=== PATIENT | female | born 1955 | race Caucasian/White ===

== ENCOUNTER → 2020-12-28 11:13 | Outpatient (CLI) | payer MEDICARE, MEDICAID, SELFPAY ==
[2020-12-28 13:08] LABS: COVID19 -Nasal RAPID Negative (Negative)
== END ==
PROVIDERS: Visit Provider Physician Assistant
DX: Z01.812 Encounter for preprocedural laboratory examination (principal); Z20.822 Contact with and (suspected) exposure to COVID-19
CPT/HCPCS: 87635; C9803

== ENCOUNTER 2020-12-29 08:10 | Day surgery (SDC) | payer MEDICARE, MEDICAID, SELFPAY ==
[2020-12-29 08:37] VITALS: BP 125/79; PULSE 96; RESP 18; TEMP 36.5; O2SAT 99; BMI 23.8
--- NOTE | 2020-12-29 08:42 | PM.HP.1 ---
History of Present Illness History of Present Illness Date Patient Seen: 12/29/20 Time Patient Seen: 08:43 Chief complaint: SDC Narrative: Personal history of colon polyps Meds Home Medications and Allergies Home Medications Medication Instructions Recorded Confirmed Type aspirin 81 mg tablet,delayed 81 mg PO DAILY 12/29/20 12/29/20 History release carvedilol 12.5 mg tablet 12.5 mg PO BID 12/29/20 12/29/20 History evolocumab 140 mg/mL subcutaneous 140 mg SUBCUT USEASDIRECTD 12/29/20 12/29/20 History pen injector (Corey Lovell) ezetimibe 10 mg tablet 10 mg PO DAILY 12/29/20 12/29/20 History losartan 50 mg tablet 50 mg PO BID 12/29/20 12/29/20 History spironolactone 25 mg tablet 12.5 mg PO DAILY 12/29/20 12/29/20 History valacyclovir 500 mg tablet 500 mg PO DAILY 12/29/20 12/29/20 History Allergies Allergy/AdvReac Type Severity Reaction Status Date / Time lisinopril Allergy Intermediate Hives Verified 12/29/20 08:55 bacitracin AdvReac Intermediate Rash Verified 12/29/20 08:55 [From Neosporin ([id number])] neomycin AdvReac Intermediate Rash Verified 12/29/20 08:55 [From Neosporin ([id number])] polymyxin B AdvReac Intermediate Rash Verified 12/29/20 08:55 [From Neosporin ([id number])] Sulfa (Sulfonamide AdvReac Intermediate Diarrhea Verified 12/29/20 08:55 Antibiotics) Review of Systems Review of Systems ROS: Yes All systems reviewed with the patient and are negative except as otherwise documented Exam Const General: cooperative and comfortable Orientation: alert HENMS Head: normocephalic Ears: external ears normal Nose: external nose normal Face and sinus: normal facial exam Mouth: oral mucosae normal Eyes General: appearance normal, both eyes and all related structures Neck Neck: normal visual inspection Chest Chest: normal inspection of the chest Resp Effort & Inspection: normal respiratory effort Cardio Rate: regular rate GI Inspection: normal to inspection Palpation: soft and No tender Skin General: no rashes or lesions noted and No jaundice Neuro General: patient alert and moves all extremities Cognition: normal cognition Speech: speech normal Extrem General: no pedal edema Psych Appearance: grossly normal Assessment & Plan Assessment & Plan narrative: Personal history of colon polyps. Colonoscopy is planned for today.
[2020-12-29] MEDS: SODIUM CHLORIDE 0.9% 1,000 ML 84 ML IV (08:56)
--- NOTE | 2020-12-29 09:26 | PM.PREOP ---
Pre-operative Note COVID-19 COVID-19 status: Negative Result date/Date tested (Pos, Neg/Pending): 12/28/20 Interval Note History & Physical reviewed/Exam performed by Physician: Yes Changes to H&P: No ASA Class (for procedural sedation): II
[2020-12-29] MEDS: MIDAZOLAM 5 MG/5 ML VIAL IV (09:38)
[2020-12-29] MEDS: fentaNYL 250 MCG/5 ML INJ IV (09:39)
--- NOTE | 2020-12-29 09:59 | P.OP.ENDO_ITS ---
Operative Date/Time/Diagnoses Date of procedure: 12/29/20 Time of procedure: 09:59 Pre-op diagnosis: Personal history of colon polyps Post-op diagnosis: same Procedure & Clinicians Study performed: Colonoscopy Same procedure as scheduled: Yes Indications: Personal history of colon polyps Surgeon: Adan Eli Procedure Notes SCOAP/Timeout: Done Procedure in detail: After the risks and benefits were explained, written and verbal informed consent was obtained. The patient was brought into the procedure room and placed into the left lateral decubitus position. Conscious sedation medication was applied as per nursing documentation. Digital rectal examination was accomplished. The scope was introduced into the patient and advanced under direct visualization to the cecum as identified by the appendiceal orifice and ileocecal valve. The scope was slowly withdrawn to carefully examine the mucosa for any defects or lesions. Comprehensive imaging was accomplished throughout the rectum including the dentate line. The colon was decompressed, the scope was then removed from the patient who tolerated the procedure well. 4 mg Versed 100 mcg fentanyl Bowel prep adequate Scope withdrawal time: 10 minutes Sedation minutes: 21 Specimen(s): none sent Complications: none Impression: There was moderate scattered diverticulosis throughout the sigmoid colon. We initially saw a small what appeared to be pedunculated erythematous polyp at the rectosigmoid junction. This appeared to measure perhaps 5 mm in greatest dimension. I initially had the idea to removed this with hot snare polypectomy. However upon closer inspection this appeared quite convincing for and everted diverticulum. I therefore left this alone. Throughout the remainder of the colon there was no additional pathology. On digital exam the patient had non thrombosed non bleeding grade 3 hemorrhoids Endoscopic diagnosis 1. Diverticulosis 2. Grade 3 internal nonthrombosed hemorrhoids Post-procedure Recommendations: Colonscopy in 3 years Plan for aftercare: In that I was unable to visualize the prior colonoscopy report nor histology from a year and a half ago I would recommend surveillance c olonoscopy in 3 years time if the patient indeed did have numerous adenomatous polyps removed back then. Disposition: PACU
[2020-12-29 10:04] VITALS: BP 100/52; PULSE 74; RESP 11; TEMP 36.2; O2SAT 97
[2020-12-29 10:09] VITALS: BP 97/44; PULSE 74; RESP 13; TEMP 36.2; O2SAT 96
[2020-12-29 10:13] VITALS: BP 98/48; PULSE 73; RESP 14; TEMP 36; O2SAT 96
[2020-12-29 10:18] VITALS: BP 109/59; PULSE 87; RESP 14; TEMP 36.1; O2SAT 98
[2020-12-29 10:29] VITALS: BP 112/55; PULSE 79; RESP 17; TEMP 36.2; O2SAT 100
== END 2020-12-29 10:32 | disposition home or self-care (01) ==
PROVIDERS: Referring Provider Internal Medicine Gastroenterology; Visit Provider Internal Medicine Gastroenterology
PROC: 0DJD8ZZ Inspection of Lower Intestinal Tract, Via Natural or Artificial Opening Endoscopic (ICD-10-PCS; CPT 45378; principal; 2020-12-29 09:30)
DX: Z12.11 Encounter for screening for malignant neoplasm of colon (principal); Z86.010 Personal history of colon polyps; K57.30 Diverticulosis of large intestine without perforation or abscess without bleeding; K64.2 Third degree hemorrhoids
CPT/HCPCS: G0105; J2250; J3010

== ENCOUNTER → 2021-08-18 15:47 | Outpatient (CLI) | payer MEDICARE, MEDICAID, SELFPAY ==
--- NOTE | 2021-08-18 15:49 | DI.MRI.S_ITS ---
PROCEDURE: MR BRACHIAL PLEXUS WWO CON INDICATIONS: Brachial plexus disorders. Right arm weakness TECHNIQUE: Noncontrast axial, coronal, and sagittal T1 spin echo and STIR through the affected brachial plexus region. Additional axial T1 spin echo and coronal T2 fast spin echo acquired through both brachial plexuses with a large [id number]-davy. Optional contrast may be given, followed by axial, coronal, and sagittal T1 spin echo with fat saturation through the affected side. COMPARISON: None. FINDINGS: Image quality: This examination is limited by involuntary motion artifact. Brachial plexus: The C5-T1 origins of the brachial plexus appear normal, without pseudomeningoceles to suggest nerve root avulsion. Within the scalene triangle, costoclavicular space, and pectoralis minor space, the visualized trunks and/or cords of the brachial plexus demonstrate normal morphology and signal. Soft tissues: No supraclavicular adenopathy by size criteria. Superior pleural surfaces are normal in thickness. Jugular veins and carotid arteries appear normal in size. Bones: Marrow demonstrates normal overall signal. IMPRESSION: Limited study demonstrating no significant abnormality of the right brachial plexus. No masses or abnormal enhancement are detected. Dictated by: Pierre Gallardo M.D. on 08/18/2021 at 16:28 Approved by: Pierre Gallardo M.D. on 08/18/2021 at 16:29
== END ==
PROVIDERS: PCP Nurse Practitioner Family; Referring Provider Psychiatry & Neurology Neurology; Visit Provider Psychiatry & Neurology Neurology
DX: G54.0 Brachial plexus disorders (principal); R29.898 Other symptoms and signs involving the musculoskeletal system
CPT/HCPCS: 71552; A9579

== ENCOUNTER → 2023-03-06 07:38 | Outpatient (CLI) | payer MEDICARE, MEDICAID, SELFPAY ==
--- NOTE | 2023-03-06 | DI.ECHO.S_ITS ---
[facility]---------[facility] +---------+ : : [address] : : : : [id number] : : : : Phone: [phone]+ Echocardiogram Report + + :Name: DEIRDRE SWAN Study Date: 03/06/2023 Height: 69 in : :[facility] ReadingLocation: Weight: 168 lb: : Gender: Female BSA: 1.9 m2 : :: 1955 Age: 67 yrs BP: 97/59 mmHg: :Reason For Study: Cardiomyopathy : :Ordering Physician: LAKISHA, : :GUNJAN Alexander Performed By: Megan Starks : :Referring: GUNJAN MESA : + + Interpretation Summary There is mild concentric left ventricular hypertrophy. The ejection fraction is estimated to be 55-60%. Grade I diastolic dysfunction. The right ventricle is normal in size and function. No significant valvular abnormalities. Pulmonary artery pressures cannot be estimated because of the lack of a measurable TR jet velocity. Procedure: A two-dimensional transthoracic echocardiogram with color flow and Doppler was performed. The study quality was technically adequate. The patient had an echocardiogram, but there is no comparison study available. The patient was in normal sinus rhythm during the exam. Left Ventricle: The left ventricle is normal in size. Proximal septal thickening is noted. There is mild concentric left ventricular hypertrophy. The ejection fraction is estimated to be 55-60%. Diastolic parameters suggest a relaxation abnormality of the left ventricle, consistent with probable normal filling pressures. Right Ventricle: The right ventricle is normal in size and function. Atria: The left atrial size is normal. Right atrial size is normal. There is no Doppler evidence for an interatrial shunt. Mitral Valve: The mitral valve is normal. There is no mitral valve stenosis. There is trace mitral regurgitation. Aortic Valve: The aortic valve is trileaflet. There is mild aortic valve sclerosis. There is no aortic valve stenosis. No aortic regurgitation is present. Tricuspid Valve: The tricuspid valve is normal. There is no tricuspid stenosis. There is trace tricuspid regurgitation. Pulmonary artery pressures cannot be estimated because of the lack of a measurable TR jet velocity. Pulmonic Valve: The pulmonic valve leaflets are thin and pliable; valve motion is normal. There is no pulmonic valvular stenosis. There is trace pulmonic regurgitation. Great Vessels: The aortic root is normal size. The ascending aorta is normal in size. The pulmonary artery is normal size. The IVC is of normal diameter and collapses greater than 50% with a sniff. This suggests a low right atrial pressure of 3 mm Hg. Pericardium/ Pleura There is no pericardial effusion. There is no pleural effusion. MMode/2D Measurements & Calculations LVIDd: 3.8 cm LVOT diam: 1.8 cm LVIDs: 2.1 cm Ao root diam: 2.9 cm FS: 44.7 % asc Aorta Diam: 2.7 cm IVSd: 1.4 cm LVPWd: 1.1 cm LV mckeon. diameter/BSA (cm/m^2): 2.0 LV sys. diameter/BSA (cm/m^2): 1.1 LA A2 area: 17.1 cm2 RA long axis: 4.4 cm LA A4 area: 14.0 cm2 RA area: 11.1 cm2 LA length (vol): 5.0 cm RA vol: 23.7 ml LA vol: 40.6 ml RA : 12.4 ml/m2 LA vol index: 21.2 ml/m2 RVD1 (basal): 3.1 cm LVLs ap4: 5.3 cm LVLd ap2: 6.7 cm TAPSE_phl: 2.8 cm LVLs ap2: 5.4 cm Doppler Measurements & Calculations Ao V2 max: 119.8 cm/sec LVOT Max Lester: 80.2 cm/sec Ao V2 mean: 82.8 cm/sec LV V1 max P.6 mmHg Ao max P.0 mmHg LV V1 VTI: 18.1 cm Ao mean P.0 mmHg TASHA(I,D): 1.7 cm2 Ao V2 VTI: 26.4 cm TASHA(V,D): 1.7 cm2 sev ratio: 0.69 TASHA indexed to BSA (cm^2/m^2): 0.91 MV E max lester: 83.6 cm/sec PA V2 max: 109.0 cm/sec MV A max lester: 88.8 cm/sec PA V2 mean: 74.2 cm/sec MV E/A: 0.94 PA mean P.0 mmHg Med Peak E' Lester: 6.5 cm/sec PA pr(Accel): 19.6 mmHg E/E' med: 12.8 Lat Peak E' Lester: 6.8 cm/sec E/E' lat: 12.4 E/e' average: 12.6 MV dec time: 0.24 sec SV(LVOT): 46.2 ml AV VR_phl: 0.67 TASHA(VTI)/BSA_phl: 0.91 Reading Physician:12:56 PM
== END ==
PROVIDERS: PCP Physician Assistant; Referring Provider Internal Medicine Cardiovascular Disease; Visit Provider Internal Medicine Cardiovascular Disease
DX: I51.7 Cardiomegaly (principal); Z86.79 Personal history of other diseases of the circulatory system
CPT/HCPCS: 93306

== ENCOUNTER 2023-07-10 13:28 | Day surgery (SDC) | payer MEDICARE, MEDICAID, SELFPAY ==
--- NOTE | 2023-07-10 | PATH_ITS ---
[facility] Accession Number: [id number] No. of containers..02 Tissue . 01 Material submitted: . PART A: body - RANDOM BIOPSY PART B: colon - RECTOSIGMOID POLYP . 01 Diagnosis: A. Random Colon, Biopsy: Colonic mucosa with no diagnostic abnormality. Negative for active, chronic, and microscopic colitis. Negative for dysplasia and malignancy. . B. Rectosigmoid Colon, Polyp: Hyperplastic polyp with minimal neutrophilic activity. Negative for granulomas, dysplasia, and malignancy. MRV 07/12/2023 1332 Local . 01 Electronically signed: . Erica Infante MD, Pathologist NPI- [id number] . 01 Gross description: . Part A: RANDOM BIOPSY: Received in formalin is 2 fragment(s) of sims, soft tissue measuring 0.2 x 0.1 x 0.1 cm to 0.1 x 0.1 x 0.1 cm submitted entirely in 1 cassette(s) Part B: RECTOSIGMOID POLYP: Received in formalin is 1 fragment(s) of sims, soft tissue measuring 0.1 x 0.1 x 0.1 cm submitted entirely in 1 cassette(s) /AAY 07/11/2023 0429 Local . 01 Pathologist provided ICD-10: K63.5 . 01 CPT . 213702, [id number] Specimen Comment: A courtesy copy of this report has been sent to [phone] Performed at: 01 [facility] [address] [place] [id number] MD Mehran Valle MD Phone: [phone]
[2023-07-10 13:49] VITALS: BP 144/73; PULSE 81; RESP 17; TEMP 36.2; O2SAT 100
[2023-07-10] MEDS: LACTATED RINGERS 1,000 ML 42 ML IV (13:54)
--- NOTE | 2023-07-10 14:06 | P.HP_ITS ---
History of Present Illness History of Present Illness Date Patient Seen: 07/10/23 Time Patient Seen: 14:07 Chief complaint: Colonoscopy Narrative: I reviewed the recent note by Dr. Romo. No significant changes. Patient is here for evaluation of symptoms related to anorectal pain, prolapse, personal history of colon polyps, recent spell of diverticulitis. She is now asymptomatic from a diverticulitis standpoint. Her last colonoscopy was 2020. She had a 3 year recall. [facility] Social History household members: friend(s) Smoking Status: Current some day smoker alcohol intake: current Meds Home Medications and Allergies Home Medications Medication Instructions Recorded Confirmed Type aspirin 81 mg tablet,delayed 81 mg PO DAILY 12/29/20 07/10/23 History release carvedilol 12.5 mg tablet 12.5 mg PO BID 12/29/20 07/10/23 History evolocumab 140 mg/mL subcutaneous 140 mg SUBCUT USEASDIRECTD 12/29/20 12/29/20 History pen injector (Corey Lovell) ezetimibe 10 mg tablet 10 mg PO DAILY 12/29/20 12/29/20 History losartan 50 mg tablet 50 mg PO BID 12/29/20 12/29/20 History spironolactone 25 mg tablet 12.5 mg PO DAILY 12/29/20 12/29/20 History valacyclovir 500 mg tablet 500 mg PO DAILY 12/29/20 12/29/20 History Allergies Allergy/AdvReac Type Severity Reaction Status Date / Time lisinopril Allergy Intermediate Hives Verified 12/29/20 08:55 bacitracin AdvReac Intermediate Rash Verified 12/29/20 08:55 [From Neosporin ([id number])] neomycin AdvReac Intermediate Rash Verified 12/29/20 08:55 [From Neosporin ([id number])] polymyxin B AdvReac Intermediate Rash Verified 12/29/20 08:55 [From Neosporin ([id number])] Sulfa (Sulfonamide AdvReac Intermediate Diarrhea Verified 12/29/20 08:55 Antibiotics) Review of Systems Review of Systems ROS: Yes All systems reviewed with the patient and are negative except as otherwise documented Exam Vital Signs (past 8 hours): - 07/10/23 13:49 Temperature 97.2 F L Pulse Rate 81 Respiratory Rate 17 Blood Pressure 144/73 H Pulse Oximetry 100 Oxygen Delivery Method Room Air Oxygen Delivery Method Room Air Const General: cooperative HENMT Head: normal to inspection Eyes General: appearance normal, both eyes and all related structures Neck Neck: normal visual inspection Chest Chest: normal inspection of the chest Resp Effort & Inspection: normal respiratory effort Cardio Rate: regular rate GI Inspection: normal to inspection Skin General: no rashes or lesions noted Neuro General: patient alert and patient awake Extrem General: normal to inspection and no pedal edema Psych Appearance: grossly normal Assessment & Plan Assessment & Plan narrative: 68-year-old female with a personal history of colon polyps and diverticulosis/diverticulitis. She has had constipation intermittently with diarrhea. No chronic diarrhea per se. She is intermittent rectal pain. Updated colonoscopy is requested and pursued today.
--- NOTE | 2023-07-10 14:08 | PM.PREOP ---
Pre-operative Note Interval Note History & Physical reviewed/Exam performed by Physician: Yes Changes to H&P: No ASA Class (for procedural sedation): II
--- NOTE | 2023-07-10 14:56 | PM.OP.COLON ---
Operative Date/Time/Diagnoses Date of procedure: 07/10/23 Time of procedure: 14:56 Pre-op diagnosis: Constipation, diarrhea, anorectal pain, rectal prolapse, history of recent diverticulitis, history of colon polyps. Post-op diagnosis: same Procedure & Clinicians Study performed: Colonoscopy with cold forceps biopsies Same procedure as scheduled: Yes Indications: Constipation, diarrhea, anorectal pain, rectal prolapse, history of recent diverticulitis, history of colon polyps. Surgeon: Adan Eli Procedure Notes SCOAP/Timeout: Done Procedure in detail: After the risks and benefits were explained, written and verbal informed consent was obtained. The patient was brought into the procedure room and placed into the left lateral decubitus position. Please see anesthesia notes for sedation details. Digital rectal examination was accomplished. The scope was introduced into the patient and advanced under direct visualization to the cecum as identified by the appendiceal orifice and ileocecal valve. The scope was slowly withdrawn to carefully examine the mucosa for any defects or lesions. Comprehensive imaging was accomplished throughout the rectum including the dentate line. The colon was decompressed, the scope was then removed from the patient who tolerated the procedure well. Pediatric colonoscope Bowel prep adequate Scope withdrawal time: 21 minutes Sedation minutes: 36 Complications: none Impression: The patient had nonbleeding nonthrombosed grade 3 internal hemorrhoids. I did not appreciate any evidence of fissure. No rectal mass. No proctitis. No colitis throughout. Random colon biopsies were taken for exclusion of microscopic colitis. The terminal ileum was visually normal. Diverticulosis was again encountered all throughout the sigmoid. I did not identify any single area of smoldering diverticulitis. There was a segment at the rectosigmoid with some patchy erythema. Once again there was a small polypoid inflamed structure perhaps measuring 5 mm in greatest dimension. I initially thought to remove this with a hot snare. However upon closer inspection, I was once again concerned about the prospect of this being an inverted inflamed diverticulum. I reviewed the photos from December of 2020 and this lesion is in the exact same spot and appears almost identical. I therefore aborted the idea of hot snare polypectomy and took a small biopsy from the edge of this lesion to evaluate for any features of adenoma. Endoscopic diagnosis 1. Diverticulosis 2. Grade 3 hemorrhoids 3. Persistent, stable inflamed small polypoid structure at rectosigmoid -biopsy acquired to exclude adenoma. Post-procedure Plan for aftercare: 1. Await histopathology. 2. The timing of surveillance colonoscopy will be contingent on these results. 3. Initiate an [id number] fiber supplement once or twice daily to help regulate stool consistency and frequency. Disposition: PACU
[2023-07-10 14:58] VITALS: BP 101/49; PULSE 72; RESP 12; TEMP 36.2; O2SAT 95
[2023-07-10 15:03] VITALS: BP 106/49; PULSE 73; RESP 13; O2SAT 96
[2023-07-10 15:08] VITALS: BP 118/58; PULSE 70; RESP 12; O2SAT 96
[2023-07-10 15:13] VITALS: BP 117/49; PULSE 72; RESP 12; O2SAT 98
[2023-07-10 15:20] VITALS: BP 131/59; PULSE 67; RESP 12; TEMP 36.2; O2SAT 99
== END 2023-07-10 15:40 | disposition home or self-care (01) ==
PROVIDERS: Family Provider Physician Assistant; PCP Physician Assistant; Referring Provider Internal Medicine Gastroenterology; Visit Provider Internal Medicine Gastroenterology
PROC: 0DJD8ZZ Inspection of Lower Intestinal Tract, Via Natural or Artificial Opening Endoscopic (ICD-10-PCS; CPT 45378; principal; 2023-07-10 14:00)
DX: K62.89 Other specified diseases of anus and rectum (principal); K62.3 Rectal prolapse; R19.7 Diarrhea, unspecified; K59.00 Constipation, unspecified; Z86.010 Personal history of colon polyps; K57.30 Diverticulosis of large intestine without perforation or abscess without bleeding; K64.2 Third degree hemorrhoids; K63.5 Polyp of colon
CPT/HCPCS: 45380; J2704

== ENCOUNTER → 2024-07-22 14:53 | Outpatient (RCR) | payer MEDICARE, MEDICAID, SELFPAY ==
--- NOTE | 2023-07-06 17:20 | PT.OIE ---
Current Diagnoses Sacrococcygeal disorders, not elsewhere classified (07/06/23) Visit Care Team Role Provider Type Marysol Mcintosh PA-C Attending Provider Non-Staff Family Provider Primary Care Provider Referring Provider Specialty: Medical Address: Pratibha SHAY [address], [facility] [address], [place], [address] Email: Physical Therapy Initial Evaluation PT-OP-A Visit Information Start: 06/29/23 17:52 Freq: Status: Active Protocol: Document 07/06/23 10:24 LRN (Rec: 07/06/23 11:20 LRN [id number]) Out-Patient Physical Therapy Visit Information Visit Information Visit Type Initial Evaluation Visit Start Time 10:30 Visit Stop Time 11:18 Visit Number 1 Evaluation Information Evaluation Date 07/06/23 Precautions Precautions PMH per intake form: allergies, artierial disease, arthritis, back/neck pain, CHF , Dizziness, Double mastectomy , CHF, L kidney in stage III chronic kidney disease (CKD), 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 PT-OP-B Current Condition Start: 06/29/23 17:52 Freq: Status: Active Protocol: Document 07/06/23 10:24 LRN (Rec: 07/06/23 11:20 LRN [id number]) Current Condition History of Current Condition Onset Date 8-9 months ago Current Complaints Coccyx and deep anal pain. History of Current Condition 3-4 yrs ago, plpped into middle of bed landing on coccyx, causing pain that lasted 3-4 months, has had 2 other episodes later that resolved, now this new episode has lasted 8-9 months. Initiating factor may have been sitting in a stressless chair. She has since stopped using the stressless chair and is sitting in an upright chair and has been doing Fig 4 stretches (feels L is tighter than R). she has been told her tailbone tips right, and with stretch exercises and use of a a memory foam bed topper , she feels the coccyx position has improved and pain has decreased to 3/10 from 7/ 10. Prior Treatments and Tests No testing. Pt has been doing exercise she found on the internet. Developmental History Developmental History Pt reported PMH: R thumb or hand pain, Double mastectomy for R breast cancer with radiation therapy of R breast, CHF diuretics causing R kidney to not function & L kidney to be in stage III chronic kidney disease (CKD) with stents put in due to poor circulation and kidney failing. 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 Divereticulitis, and new onset of rectal prolpase. Treatment Goals Patient/Caregiver Goals Pt goal: Painfree with sitting and walking, and HEP ( for prevention), and minimal rectal prolapse and self care. 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 Personal Factors Other Personal Factors That May Effect Diverticulitis, Therapy/Recovery hx of rectal prolapse, scarring from abdominal surgeries, soft tissue changes from double mastectomy, richard kidney dysfunction & R sided UE neuropathy. PT-OP-C Subjective Start: 06/29/23 17:52 Freq: Status: Active Protocol: Document 07/06/23 10:24 LRN (Rec: 07/06/23 11:20 N [id number]) Patient Questionnaires Oswestry Low Back Index Oswestry Score 32 Oswestry Impairment 20 to 39% Impaired (Score 20- 39) OP-PT Pain Assessment Pain Assessment Grid Paper Pain Assessment Grid Completed Yes Location Anal pain Pain Location Details Internal at anus Intensity 2 Scale Used Numeric (0 - 10) Description Aching Description- Other Deep Coccyx Pain Location Details Coccyx Intensity 2 Scale Used Numeric (0 - 10) Description Aching,Sharp,Throbbing Description- Other Was sharp if sit wrong, now soreness. verbally pain rated 3/10. Frequency Constant Pain Aggravating Factors Sitting,Walking Pain Alleviating Factors None PT-OP-F Manual Assessment Start: 06/29/23 17:52 Freq: Status: Active Protocol: Document 07/06/23 10:24 LRN (Rec: 07/06/23 14:21 LRN [id number]) Manual Assessments Soft Tissue Assessment Soft Tissue Mobility Assessment Obturator Internus: Painful/ tight bilaterally (L>R). Puborectal muscles (external palpation): No pain. Gluteus Joe: Increased ms tension on L side of coccyx PT-OP-J Posture/Palpation/Skin Start: 06/29/23 17:52 Freq: Status: Active Protocol: Document 07/06/23 10:24 LRN (Rec: 07/06/23 11:20 LRN [id number]) Posture Evaluation Position Standing Head/C-Spine Posture Forward Head T-Spine Posture Increased Kyphosis Shoulder Posture (R) Elevated Pelvis Posture Posterior Tilted Palpation Assessment Location Coccygeal ms Palpation Location Coccyx Palpation Details L lateral side of coccxys painful. Denies pain on R side or with pressure through distal end of coccyx. PT-OP-K Range of Motion Start: 06/29/23 17:52 Freq: Status: Active Protocol: Document 07/06/23 10:24 LRN (Rec: 07/06/23 11:20 LRN [id number]) Lumbar Spine Range of Motion Lumbar Spine Active Degrees Testing Position Standing Flexion 110 Extension 15 Rotation Left 30 Rotation Right 10 Lateral Flexion Left 15 Lateral Flexion Right 13 Comments Trunk AROM: Flexion is 110 deg?s with 85 deg?s hip flexion, Trunk extension is 15 deg?s with 10 deg?s hip extension. Hip ext limited by abdominal scar tightness. Movement dysfunction with R SB , pt did SB/with L rotation. Hip Goniometric Range of Motion Hip Right Passive Testing Position Supine Flexion w/Knee Flexed 120 Internal Rotation 18 External Rotation 70 Left Passive Testing Position Supine Flexion w/Knee Flexed 135 Internal Rotation 15 External Rotation 85 Comments L hip active IR limited PT-OP-M Strength Start: 06/29/23 17:52 Freq: Status: Active Protocol: Document 07/06/23 10:24 LRN (Rec: 07/06/23 11:20 LRN [id number]) Hip Strength Hip Manual Muscle Testing Right External Rotation 5 Normal Internal Rotation 5 Normal Left External Rotation 5 Normal Internal Rotation 5 Normal PT-OP-Q Treatments Start: 06/29/23 17:52 Freq: Status: Active Protocol: Document 07/06/23 10:24 LRN (Rec: 07/06/23 11:20 LRN [id number]) Therapeutic Exercises Supine Exercises SKTC Supine Exercise Name SKTC stretch Side bilateral Reps/Minutes 2' Passive hip stretch Supine Exercise Name Piriformis (knee to opp shdr) stretch Side bilateral Reps/Minutes 3' Comments Poor tolerance due to onset hip jt pain that lingered. Self-Care/Home Management Treatment Education Patient Education Home Exercise Program Other Education Discussed results of evaluation, goals, and plan of care (POC). Pt agreeable to goals and POC. Activities Self-Care/Home Management Activities I/S pt in SKTC stretch, self stretch to L side of coccyx. Attempted to show pt hip IR richard (L>R home stretch, but pt did not tolerate it at this time, so held stretch. PT-OP-T Assessment and Plan Start: 06/29/23 17:52 Freq: Status: Active Protocol: Document 07/06/23 10:24 LRN (Rec: 07/06/23 11:20 LRN [id number]) Physical Therapy Assessment Rehab Potential Rehabilitation Potential Good Evaluation Complexity Number of Personal Factors/Comorbidities 3 or More Number of Body Systems Impaired 4 or More Clinical Presentation at Evaluation Evolving Impairments Impairments Activity Tolerance,Pain, Posture,ROM,Soft Tissue Mobility,Strength,Transfers Goals Three Impairment Deep rectal pain rated 2/10 Short Term Goal (STG) Pt educated in proper transfers to lessen core intra -abdominal pressure. STG Duration 2 wks-07/20/23 Clinical Trials Data Coordinator Goal (LTG) Eliminate rectal pain with self care PF strengthening exercise. LTG Duration 12 wks-09/28/23 Two Impairment Coccyx pain with sitting and walking verbally rated at 2-3/ 10. Short Term Goal (STG) Pt will be educated in self stretch to sacrococcygeal and hip IR ms to decrease pain. STG Duration 4 wks-08/04/23 Clinical Trials Data Coordinator Goal (LTG) Pt will be able to sit and walk (during the day controlling pain with HEP) without coccyx pain. LTG Duration 8 wks-09/01/23 One Impairment Pt lacks an independent self care HEP. Short Term Goal (STG) Pt will be educated in proper posture sitting and standing. STG Duration 2 wks-07/20/23 Clinical Trials Data Coordinator Goal (LTG) Pt will be independent in a self care HEP for coccyx self mob/stretch to L side of coccyx and PF posterior> anterior strengthening, and posture exercises (decr kyphosis). Pt goal: Painfree with sitting and painfree walking thoughout the day (get rid of pain); LTG Duration 12 wks-09/28/23 Assessment Summary Assessment Pt is a 68 yo female with her cooccyx in R SB with tightness /pain present on L side, very tight and tender in the deep hip IR's (Obturator internus) and pain deep in anus reported (appears to be gluteals). Soft tissue dysfunction with tenderness in the posterior PF /levator ani ms is present. Abdominal scarring is limiting hip ext mobility and will require STM to improve motion. She demonstrated a movement dysfunction of trunk L rot when performing active R SB. I was not able to complete a posterior PF exam; therefore is pt permits further assessment will be performed at her next visit. The pt will benefit from skilled physical therapy to work towards achieving the above stated goals. Physical Therapy Plan Frequency and Duration Frequency of Treatment 1x/Week Duration of treatment (weeks) 12 Plan of Care Start Date 07/06/23 Plan of Care End Date 09/28/23 Therapeutic Interventions Therapeutic Interventions Home Exercise Program,Manual Therapy,Neuromuscular Re- education,Self-Care/Home Management,Soft Tissue Mobilization,Therapeutic Activities,Therapeutic Exercises Modalities Electric Stimulation Next Visit Focus/Plan Next Note Type Treatment Note Next Visit Plan Next: Assess Levator Ani and posterior PF (anal) ms strength and tension; Assess hip strength. Review self stretch to sacrococcygeal and retry hip IR ms HEP stretch. Pt education in proper deep breathing, and proper breathing with transfers and body mechanics for intra- abdominal core pressure management, sitting/standing posture training, POC: Coccyx pain: Manual therapy, Pt education, Therapeutic & Neuro re-ed Ex for posture. Anal pain: Manual therapy. ? Biofeedback with vaginal sensor. Therapeutic Exercises, Therapeutic Activities, Neuromuscular Reeducation.
--- NOTE | 2023-07-06 17:20 | PT.OPPOC ---
Physical, Occupational & Speech Therapy At [facility] Current Diagnoses Sacrococcygeal disorders, not elsewhere classified (07/06/23) Visit Care Team Role Provider Type Marysol Mcintosh PA-C Attending Provider Non-Staff Family Provider Primary Care Provider Referring Provider Specialty: Medical Address: [facility] Yesy Larkin, [address] [address], [place], [address] Email: Plan Of Care PT-OP-T Assessment and Plan Start: 06/29/23 17:52 Freq: Status: Active Protocol: Document 07/06/23 10:24 LRN (Rec: 07/06/23 11:20 LRN [id number]) Physical Therapy Assessment Rehab Potential Rehabilitation Potential Good Evaluation Complexity Number of Personal Factors/Comorbidities 3 or More Number of Body Systems Impaired 4 or More Clinical Presentation at Evaluation Evolving Impairments Impairments Activity Tolerance,Pain, Posture,ROM,Soft Tissue Mobility,Strength,Transfers Goals Three Impairment Deep rectal pain rated 2/10 Short Term Goal (STG) Pt educated in proper transfers to lessen core intra -abdominal pressure. STG Duration 2 wks-07/20/23 Sulfuric Acid Plant Operator Goal (LTG) Eliminate rectal pain with self care PF strengthening exercise. LTG Duration 12 wks-09/28/23 Two Impairment Coccyx pain with sitting and walking verbally rated at 2-3/ 10. Short Term Goal (STG) Pt will be educated in self stretch to sacrococcygeal and hip IR ms to decrease pain. STG Duration 4 wks-08/04/23 Sulfuric Acid Plant Operator Goal (LTG) Pt will be able to sit and walk (during the day controlling pain with HEP) without coccyx pain. LTG Duration 8 wks-09/01/23 One Impairment Pt lacks an independent self care HEP. Short Term Goal (STG) Pt will be educated in proper posture sitting and standing. STG Duration 2 wks-07/20/23 Custodial Goal (LTG) Pt will be independent in a self care HEP for coccyx self mob/stretch to L side of coccyx and PF posterior> anterior strengthening, and posture exercises (decr kyphosis). Pt goal: Painfree with sitting and painfree walking thoughout the day (get rid of pain); LTG Duration 12 wks-09/28/23 Assessment Summary Assessment Pt is a 68 yo female with her cooccyx in R SB with tightness /pain present on L side, very tight and tender in the deep hip IR's (Obturator internus) and pain deep in anus reported (appears to be gluteals). Soft tissue dysfunction with tenderness in the posterior PF /levator ani ms is present. Abdominal scarring is limiting hip ext mobility and will require STM to improve motion. She demonstrated a movement dysfunction of trunk L rot when performing active R SB. I was not able to complete a posterior PF exam; therefore is pt permits further assessment will be performed at her next visit. The pt will benefit from skilled physical therapy to work towards achieving the above stated goals. Physical Therapy Plan Frequency and Duration Frequency of Treatment 1x/Week Duration of treatment (weeks) 12 Plan of Care Start Date 07/06/23 Plan of Care End Date 09/28/23 Therapeutic Interventions Therapeutic Interventions Home Exercise Program,Manual Therapy,Neuromuscular Re- education,Self-Care/Home Management,Soft Tissue Mobilization,Therapeutic Activities,Therapeutic Exercises Modalities Electric Stimulation Next Visit Focus/Plan Next Note Type Treatment Note Next Visit Plan Next: Assess Levator Ani and posterior PF (anal) ms strength and tension; Assess hip strength. Review self stretch to sacrococcygeal and retry hip IR ms HEP stretch. Pt education in proper deep breathing, and proper breathing with transfers and body mechanics for intra- abdominal core pressure management, sitting/standing posture training, POC: Coccyx pain: Manual therapy, Pt education, Therapeutic & Neuro re-ed Ex for posture. Anal pain: Manual therapy. ? Biofeedback with vaginal sensor. Therapeutic Exercises, Therapeutic Activities, Neuromuscular Reeducation. Plan of Care Dates Plan of Care Start Date 07/06/23 Plan of Care End Date 09/28/23 Electronically Signed by: Philly Justin, PT 07/06/23 1386 If you are in agreement with this Plan of Care, please return a signed and dated copy. I have reviewed this Plan of Care and certify that the skilled therapy services above are required to meet the patient?s needs. Physician Signature Date Printed Name and Credentials Clinical Instructor Signature Printed Name and Credentials
--- NOTE | 2023-07-06 17:25 | PT.OIE ---
Current Diagnoses Stiffness of unspecified hip, not elsewhere classified (07/06/23) Sacrococcygeal disorders, not elsewhere classified (07/06/23) Pelvic and perineal pain (07/06/23) Visit Care Team Role Provider Type Marysol Mcintosh PA-C Attending Provider Non-Staff Family Provider Primary Care Provider Referring Provider Specialty: Medical Address: [facility] Yesy Larkin, [facility], [place], [address] Email: Physical Therapy Initial Evaluation PT-OP-A Visit Information Start: 06/29/23 17:52 Freq: Status: Active Protocol: Document 07/06/23 10:24 LRN (Rec: 07/06/23 11:20 LRN [id number]) Out-Patient Physical Therapy Visit Information Visit Information Visit Type Initial Evaluation Visit Start Time 10:30 Visit Stop Time 11:18 Visit Number 1 Evaluation Information Evaluation Date 07/06/23 Precautions Precautions PMH per intake form: allergies, artierial disease, arthritis, back/neck pain, CHF , Dizziness, Double mastectomy , CHF, L kidney in stage III chronic kidney disease (CKD), 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 PT-OP-B Current Condition Start: 06/29/23 17:52 Freq: Status: Active Protocol: Document 07/06/23 10:24 LRN (Rec: 07/06/23 11:20 LRN [id number]) Current Condition History of Current Condition Onset Date 8-9 months ago Current Complaints Coccyx and deep anal pain. History of Current Condition 3-4 yrs ago, plpped into middle of bed landing on coccyx, causing pain that lasted 3-4 months, has had 2 other episodes later that resolved, now this new episode has lasted 8-9 months. Initiating factor may have been sitting in a stressless chair. She has since stopped using the stressless chair and is sitting in an upright chair and has been doing Fig 4 stretches (feels L is tighter than R). she has been told her tailbone tips right, and with stretch exercises and use of a a memory foam bed topper , she feels the coccyx position has improved and pain has decreased to 3/10 from 7/ 10. Prior Treatments and Tests No testing. Pt has been doing exercise she found on the internet. Developmental History Developmental History Pt reported PMH: R thumb or hand pain, Double mastectomy for R breast cancer with radiation therapy of R breast, CHF diuretics causing R kidney to not function & L kidney to be in stage III chronic kidney disease (CKD) with stents put in due to poor circulation and kidney failing. 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 Divereticulitis, and new onset of rectal prolpase. Treatment Goals Patient/Caregiver Goals Pt goal: Painfree with sitting and walking, and HEP ( for prevention), and minimal rectal prolapse and self care. 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 Personal Factors Other Personal Factors That May Effect Diverticulitis, Therapy/Recovery hx of rectal prolapse, scarring from abdominal surgeries, soft tissue changes from double mastectomy, richard kidney dysfunction & R sided UE neuropathy. PT-OP-C Subjective Start: 06/29/23 17:52 Freq: Status: Active Protocol: Document 07/06/23 10:24 LRN (Rec: 07/06/23 11:20 LRN [id number]) Patient Questionnaires Oswestry Low Back Index Oswestry Score 32 Oswestry Impairment 20 to 39% Impaired (Score 20- 39) OP-PT Pain Assessment Pain Assessment Grid Paper Pain Assessment Grid Completed Yes Location Anal pain Pain Location Details Internal at anus Intensity 2 Scale Used Numeric (0 - 10) Description Aching Description- Other Deep Coccyx Pain Location Details Coccyx Intensity 2 Scale Used Numeric (0 - 10) Description Aching,Sharp,Throbbing Description- Other Was sharp if sit wrong, now soreness. verbally pain rated 3/10. Frequency Constant Pain Aggravating Factors Sitting,Walking Pain Alleviating Factors None PT-OP-F Manual Assessment Start: 06/29/23 17:52 Freq: Status: Active Protocol: Document 07/06/23 10:24 LRN (Rec: 07/06/23 14:21 LRN [id number]) Manual Assessments Soft Tissue Assessment Soft Tissue Mobility Assessment Obturator Internus: Painful/ tight bilaterally (L>R). Puborectal muscles (external palpation): No pain. Gluteus Joe: Increased ms tension on L side of coccyx PT-OP-J Posture/Palpation/Skin Start: 06/29/23 17:52 Freq: Status: Active Protocol: Document 07/06/23 10:24 LRN (Rec: 07/06/23 11:20 LRN [id number]) Posture Evaluation Position Standing Head/C-Spine Posture Forward Head T-Spine Posture Increased Kyphosis Shoulder Posture (R) Elevated Pelvis Posture Posterior Tilted Palpation Assessment Location Coccygeal ms Palpation Location Coccyx Palpation Details L lateral side of coccxys painful. Denies pain on R side or with pressure through distal end of coccyx. PT-OP-K Range of Motion Start: 06/29/23 17:52 Freq: Status: Active Protocol: Document 07/06/23 10:24 LRN (Rec: 07/06/23 11:20 LRN [id number]) Lumbar Spine Range of Motion Lumbar Spine Active Degrees Testing Position Standing Flexion 110 Extension 15 Rotation Left 30 Rotation Right 10 Lateral Flexion Left 15 Lateral Flexion Right 13 Comments Trunk AROM: Flexion is 110 deg?s with 85 deg?s hip flexion, Trunk extension is 15 deg?s with 10 deg?s hip extension. Hip ext limited by abdominal scar tightness. Movement dysfunction with R SB , pt did SB/with L rotation. Hip Goniometric Range of Motion Hip Right Passive Testing Position Supine Flexion w/Knee Flexed 120 Internal Rotation 18 External Rotation 70 Left Passive Testing Position Supine Flexion w/Knee Flexed 135 Internal Rotation 15 External Rotation 85 Comments L hip active IR limited PT-OP-M Strength Start: 06/29/23 17:52 Freq: Status: Active Protocol: Document 07/06/23 10:24 LRN (Rec: 07/06/23 11:20 LRN [id number]) Hip Strength Hip Manual Muscle Testing Right External Rotation 5 Normal Internal Rotation 5 Normal Left External Rotation 5 Normal Internal Rotation 5 Normal PT-OP-Q Treatments Start: 06/29/23 17:52 Freq: Status: Active Protocol: Document 07/06/23 10:24 LRN (Rec: 07/06/23 11:20 LRN [id number]) Therapeutic Exercises Supine Exercises SKTC Supine Exercise Name SKTC stretch Side bilateral Reps/Minutes 2' Passive hip stretch Supine Exercise Name Piriformis (knee to opp shdr) stretch Side bilateral Reps/Minutes 3' Comments Poor tolerance due to onset hip jt pain that lingered. Self-Care/Home Management Treatment Education Patient Education Home Exercise Program Other Education Discussed results of evaluation, goals, and plan of care (POC). Pt agreeable to goals and POC. Activities Self-Care/Home Management Activities I/S pt in SKTC stretch, self stretch to L side of coccyx. Attempted to show pt hip IR richard (L>R home stretch, but pt did not tolerate it at this time, so held stretch. PT-OP-T Assessment and Plan Start: 06/29/23 17:52 Freq: Status: Active Protocol: Document 07/06/23 10:24 LRN (Rec: 07/06/23 11:20 LRN [id number]) Physical Therapy Assessment Rehab Potential Rehabilitation Potential Good Evaluation Complexity Number of Personal Factors/Comorbidities 3 or More Number of Body Systems Impaired 4 or More Clinical Presentation at Evaluation Evolving Impairments Impairments Activity Tolerance,Pain, Posture,ROM,Soft Tissue Mobility,Strength,Transfers Goals Three Impairment Deep rectal pain rated 2/10 Short Term Goal (STG) Pt educated in proper transfers to lessen core intra -abdominal pressure. STG Duration 2 wks-07/20/23 Penitentiary Goal (LTG) Eliminate rectal pain with self care PF strengthening exercise. LTG Duration 12 wks-09/28/23 Two Impairment Coccyx pain with sitting and walking verbally rated at 2-3/ 10. Short Term Goal (STG) Pt will be educated in self stretch to sacrococcygeal and hip IR ms to decrease pain. STG Duration 4 wks-08/04/23 Penitentiary Goal (LTG) Pt will be able to sit and walk (during the day controlling pain with HEP) without coccyx pain. LTG Duration 8 wks-09/01/23 One Impairment Pt lacks an independent self care HEP. Short Term Goal (STG) Pt will be educated in proper posture sitting and standing. STG Duration 2 wks-07/20/23 Penitentiary Goal (LTG) Pt will be independent in a self care HEP for coccyx self mob/stretch to L side of coccyx and PF posterior> anterior strengthening, and posture exercises (decr kyphosis). Pt goal: Painfree with sitting and painfree walking thoughout the day (get rid of pain); LTG Duration 12 wks-09/28/23 Assessment Summary Assessment Pt is a 68 yo female with her cooccyx in R SB with tightness /pain present on L side, very tight and tender in the deep hip IR's (Obturator internus) and pain deep in anus reported (appears to be gluteals). Soft tissue dysfunction with tenderness in the posterior PF /levator ani ms is present. Abdominal scarring is limiting hip ext mobility and will require STM to improve motion. She demonstrated a movement dysfunction of trunk L rot when performing active R SB. I was not able to complete a posterior PF exam; therefore is pt permits further assessment will be performed at her next visit. The pt will benefit from skilled physical therapy to work towards achieving the above stated goals. Physical Therapy Plan Frequency and Duration Frequency of Treatment 1x/Week Duration of treatment (weeks) 12 Plan of Care Start Date 07/06/23 Plan of Care End Date 09/28/23 Therapeutic Interventions Therapeutic Interventions Home Exercise Program,Manual Therapy,Neuromuscular Re- education,Self-Care/Home Management,Soft Tissue Mobilization,Therapeutic Activities,Therapeutic Exercises Modalities Electric Stimulation Next Visit Focus/Plan Next Note Type Treatment Note Next Visit Plan Next: Assess Levator Ani and posterior PF (anal) ms strength and tension; Assess hip strength. Review self stretch to sacrococcygeal and retry hip IR ms HEP stretch. Pt education in proper deep breathing, and proper breathing with transfers and body mechanics for intra- abdominal core pressure management, sitting/standing posture training, POC: Coccyx pain: Manual therapy, Pt education, Therapeutic & Neuro re-ed Ex for posture. Anal pain: Manual therapy. ? Biofeedback with vaginal sensor. Therapeutic Exercises, Therapeutic Activities, Neuromuscular Reeducation.
--- NOTE | 2023-07-06 17:25 | PT.OPPOC ---
Physical, Occupational & Speech Therapy At [facility] Current Diagnoses Stiffness of unspecified hip, not elsewhere classified (07/06/23) Sacrococcygeal disorders, not elsewhere classified (07/06/23) Pelvic and perineal pain (07/06/23) Visit Care Team Role Provider Type Marysol Mcintosh PA-C Attending Provider Non-Staff Family Provider Primary Care Provider Referring Provider Specialty: Medical Address: [address] [place], [place] [address]chuy Larkin, [facility] [address], [place], [address] Email: Plan Of Care PT-OP-T Assessment and Plan Start: 06/29/23 17:52 Freq: Status: Active Protocol: Document 07/06/23 10:24 LRN (Rec: 07/06/23 11:20 LRN [id number]) Physical Therapy Assessment Rehab Potential Rehabilitation Potential Good Evaluation Complexity Number of Personal Factors/Comorbidities 3 or More Number of Body Systems Impaired 4 or More Clinical Presentation at Evaluation Evolving Impairments Impairments Activity Tolerance,Pain, Posture,ROM,Soft Tissue Mobility,Strength,Transfers Goals Three Impairment Deep rectal pain rated 2/10 Short Term Goal (STG) Pt educated in proper transfers to lessen core intra -abdominal pressure. STG Duration 2 wks-07/20/23 Emergency Medicine Medical Director Goal (LTG) Eliminate rectal pain with self care PF strengthening exercise. LTG Duration 12 wks-09/28/23 Two Impairment Coccyx pain with sitting and walking verbally rated at 2-3/ 10. Short Term Goal (STG) Pt will be educated in self stretch to sacrococcygeal and hip IR ms to decrease pain. STG Duration 4 wks-08/04/23 Emergency Medicine Medical Director Goal (LTG) Pt will be able to sit and walk (during the day controlling pain with HEP) without coccyx pain. LTG Duration 8 wks-09/01/23 One Impairment Pt lacks an independent self care HEP. Short Term Goal (STG) Pt will be educated in proper posture sitting and standing. STG Duration 2 wks-07/20/23 Emergency Medicine Medical Director Goal (LTG) Pt will be independent in a self care HEP for coccyx self mob/stretch to L side of coccyx and PF posterior> anterior strengthening, and posture exercises (decr kyphosis). Pt goal: Painfree with sitting and painfree walking thoughout the day (get rid of pain); LTG Duration 12 wks-09/28/23 Assessment Summary Assessment Pt is a 68 yo female with her cooccyx in R SB with tightness /pain present on L side, very tight and tender in the deep hip IR's (Obturator internus) and pain deep in anus reported (appears to be gluteals). Soft tissue dysfunction with tenderness in the posterior PF /levator ani ms is present. Abdominal scarring is limiting hip ext mobility and will require STM to improve motion. She demonstrated a movement dysfunction of trunk L rot when performing active R SB. I was not able to complete a posterior PF exam; therefore is pt permits further assessment will be performed at her next visit. The pt will benefit from skilled physical therapy to work towards achieving the above stated goals. Physical Therapy Plan Frequency and Duration Frequency of Treatment 1x/Week Duration of treatment (weeks) 12 Plan of Care Start Date 07/06/23 Plan of Care End Date 09/28/23 Therapeutic Interventions Therapeutic Interventions Home Exercise Program,Manual Therapy,Neuromuscular Re- education,Self-Care/Home Management,Soft Tissue Mobilization,Therapeutic Activities,Therapeutic Exercises Modalities Electric Stimulation Next Visit Focus/Plan Next Note Type Treatment Note Next Visit Plan Next: Assess Levator Ani and posterior PF (anal) ms strength and tension; Assess hip strength. Review self stretch to sacrococcygeal and retry hip IR ms HEP stretch. Pt education in proper deep breathing, and proper breathing with transfers and body mechanics for intra- abdominal core pressure management, sitting/standing posture training, POC: Coccyx pain: Manual therapy, Pt education, Therapeutic & Neuro re-ed Ex for posture. Anal pain: Manual therapy. ? Biofeedback with vaginal sensor. Therapeutic Exercises, Therapeutic Activities, Neuromuscular Reeducation. Plan of Care Dates Plan of Care Start Date 07/06/23 Plan of Care End Date 09/28/23 Electronically Signed by: Philly Justin, PT 07/06/23 5057 If you are in agreement with this Plan of Care, please return a signed and dated copy. I have reviewed this Plan of Care and certify that the skilled therapy services above are required to meet the patient?s needs. Physician Signature Date Printed Name and Credentials Clinical Instructor Signature Printed Name and Credentials
--- NOTE | 2023-07-13 12:42 | PT.OTN ---
Current Diagnoses Stiffness of unspecified hip, not elsewhere classified (07/13/23) Sacrococcygeal disorders, not elsewhere classified (07/13/23) Pelvic and perineal pain (07/13/23) Physical Therapy Treatment Note PT-OP-A Visit Information Start: 06/29/23 17:52 Freq: Status: Active Protocol: Document 07/13/23 10:32 LRN (Rec: 07/13/23 11:20 LRN [id number]) Out-Patient Physical Therapy Visit Information Visit Information Visit Type Treatment Note Visit Start Time 10:32 Visit Stop Time 11:15 Visit Number 2 Evaluation Information Evaluation Date 07/06/23 Precautions Precautions PMH per intake form: allergies, artierial disease, arthritis, back/neck pain, CHF , Dizziness, Double mastectomy , CHF, L kidney in stage III chronic kidney disease (CKD), 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 PT-OP-B Current Condition Start: 06/29/23 17:52 Freq: Status: Active Protocol: Document 07/06/23 10:24 LRN (Rec: 07/06/23 11:20 LRN [id number]) Current Condition History of Current Condition Onset Date 8-9 months ago Current Complaints Coccyx and deep anal pain. History of Current Condition 3-4 yrs ago, plpped into middle of bed landing on coccyx, causing pain that lasted 3-4 months, has had 2 other episodes later that resolved, now this new episode has lasted 8-9 months. Initiating factor may have been sitting in a stressless chair. She has since stopped using the stressless chair and is sitting in an upright chair and has been doing Fig 4 stretches (feels L is tighter than R). she has been told her tailbone tips right, and with stretch exercises and use of a a memory foam bed topper , she feels the coccyx position has improved and pain has decreased to 3/10 from 7/ 10. Prior Treatments and Tests No testing. Pt has been doing exercise she found on the internet. Developmental History Developmental History Pt reported PMH: R thumb or hand pain, Double mastectomy for R breast cancer with radiation therapy of R breast, CHF diuretics causing R kidney to not function & L kidney to be in stage III chronic kidney disease (CKD) with stents put in due to poor circulation and kidney failing. 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 Divereticulitis, and new onset of rectal prolpase. Treatment Goals Patient/Caregiver Goals Pt goal: Painfree with sitting and walking, and HEP ( for prevention), and minimal rectal prolapse and self care. 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 Personal Factors Other Personal Factors That May Effect Diverticulitis, Therapy/Recovery hx of rectal prolapse, scarring from abdominal surgeries, soft tissue changes from double mastectomy, richard kidney dysfunction & R sided UE neuropathy. PT-OP-C Subjective Start: 06/29/23 17:52 Freq: Status: Active Protocol: Document 07/13/23 10:32 LRN (Rec: 07/13/23 11:20 LRN [id number]) OP-PT Subjective Patient Comments Patient Comments Tail bone pain is almost completely gone. Doing online ex's and ex's issued, along with padding sitting, all has really helped. Has other health issues going on, so is going to cancel all remaining appts so she can focus on her other issue of possible colon cancer. States she was told her prolapse is from the constipation side of irritable bowel syndrome. Patient Questionnaires Oswestry Low Back Index Oswestry Score 32 Oswestry Impairment 20 to 39% Impaired (Score 20- 39) OP-PT Pain Assessment Pain Assessment Grid Paper Pain Assessment Grid Completed Yes Location Anal pain Pain Location Details Internal at anus Intensity 1 Scale Used Numeric (0 - 10) Coccyx Pain Location Details Coccyx Intensity 3 PT-OP-F Manual Assessment Start: 06/29/23 17:52 Freq: Status: Active Protocol: Document 07/06/23 10:24 LRN (Rec: 07/06/23 14:21 LRN [id number]) Manual Assessments Soft Tissue Assessment Soft Tissue Mobility Assessment Obturator Internus: Painful/ tight bilaterally (L>R). Puborectal muscles (external palpation): No pain. Gluteus Joe: Increased ms tension on L side of coccyx PT-OP-J Posture/Palpation/Skin Start: 06/29/23 17:52 Freq: Status: Active Protocol: Document 07/06/23 10:24 LRN (Rec: 07/06/23 11:20 LRN [id number]) Posture Evaluation Position Standing Head/C-Spine Posture Forward Head T-Spine Posture Increased Kyphosis Shoulder Posture (R) Elevated Pelvis Posture Posterior Tilted Palpation Assessment Location Coccygeal ms Palpation Location Coccyx Palpation Details L lateral side of coccxys painful. Denies pain on R side or with pressure through distal end of coccyx. PT-OP-K Range of Motion Start: 06/29/23 17:52 Freq: Status: Active Protocol: Document 07/06/23 10:24 LRN (Rec: 07/06/23 11:20 LRN [id number]) Lumbar Spine Range of Motion Lumbar Spine Active Degrees Testing Position Standing Flexion 110 Extension 15 Rotation Left 30 Rotation Right 10 Lateral Flexion Left 15 Lateral Flexion Right 13 Comments Trunk AROM: Flexion is 110 deg?s with 85 deg?s hip flexion, Trunk extension is 15 deg?s with 10 deg?s hip extension. Hip ext limited by abdominal scar tightness. Movement dysfunction with R SB , pt did SB/with L rotation. Hip Goniometric Range of Motion Hip Right Passive Testing Position Supine Flexion w/Knee Flexed 120 Internal Rotation 18 External Rotation 70 Left Passive Testing Position Supine Flexion w/Knee Flexed 135 Internal Rotation 15 External Rotation 85 Comments L hip active IR limited PT-OP-M Strength Start: 06/29/23 17:52 Freq: Status: Active Protocol: Document 07/06/23 10:24 LRN (Rec: 07/06/23 11:20 LRN [id number]) Hip Strength Hip Manual Muscle Testing Right External Rotation 5 Normal Internal Rotation 5 Normal Left External Rotation 5 Normal Internal Rotation 5 Normal PT-OP-Q Treatments Start: 06/29/23 17:52 Freq: Status: Active Protocol: Document 07/13/23 10:32 LRN (Rec: 07/13/23 11:20 LRN [id number]) Therapeutic Exercises Supine Exercises DKTC stretch Supine Exercise Name DKTC stretch Reps/Minutes 4' Comments Extra time to determine max ana stretch Happy Baby Pose Supine Exercise Name Happy Baby Pose Reps/Minutes 3' Comments Cued for breathing, extra time needed to determine max ana stretch. Hip flexor stretch Supine Exercise Name Hip flexor stretch Side bilateral Reps/Minutes 6' Comments Cuing to keep back flat & lie on edge of bed to not roll off Lateral hip stretch Supine Exercise Name Lateral Hip stretch Side bilateral Reps/Minutes 8' Comments Extra time taken to determine max tolerated stretch and position for stretc SKTC Supine Exercise Name SKTC stretch Side bilateral Reps/Minutes 4' Comments Review needed Passive hip stretch Supine Exercise Name Piriformis (knee to opp shdr) stretch Reps/Minutes 5' Comments Cuing for positioning of hands and direction of pulll Sitting Exercises L lateral cocccyx stretch Sitting Exercise Name Self stretch to L lateral coccyx Side left Reps/Minutes 3' Comments VC & phys cuing for where to put her hands for self stretch . Hip AD stretch Sitting Exercise Name V-sit for inner thigh stretch Side bilateral Reps/Minutes 2' Comments Cuing to keep back straight for stretch. Phys & v cuing needed. Other Exercises Child's Pose Other Exercise Name Child's pose. Reps/Minutes 3' Self-Care/Home Management Treatment Education Patient Education Home Exercise Program Other Education Discussed how to modify self stretch to coccyx with use of rolled washcloth or racquetball to save using fingers to stretch. Activities Self-Care/Home Management Activities Issued & reviewed HEP: Child' s Pose, Happy Baby Pose, DKTC stretch, Piriformis stretch ( knee to opp shdr), Lateral hip stretch and Hip flexor stretch with leg off plinth and holding opp knee to shoulder. PT-OP-T Assessment and Plan Start: 06/29/23 17:52 Freq: Status: Active Protocol: Document 07/13/23 10:32 LRN (Rec: 07/13/23 11:20 LRN [id number]) Physical Therapy Assessment Goals Three Impairment Deep rectal pain rated 2/10 Short Term Goal (STG) Pt educated in proper transfers to lessen core intra -abdominal pressure. STG Duration 2 wks-07/20/23 (07/13/23: NOT MET GOAL, EARLY DC) Auto Porter Goal (LTG) Eliminate rectal pain with self care PF strengthening exercise. 07/13/23: Pain rated 1/10 LTG Duration 12 wks-09/28/23 (07/13/23: improved, NOT MET GOAL, EARLY DC) Two Impairment Coccyx pain with sitting and walking verbally rated at 2-3/ 10. Short Term Goal (STG) Pt will be educated in self stretch to sacrococcygeal and hip IR ms to decrease pain. 07/13/23: HEP: issued for hip IR stretch, reviewed sacrococcygeal stretch. STG Duration 4 wks-08/04/23 (07/13/23: MET GOAL) Auto Porter Goal (LTG) Pt will be able to sit and walk (during the day controlling pain with HEP) without coccyx pain. 07/13/23: Pain complain reduced. LTG Duration 8 wks-09/01/23 (07/13/23: Improved, NOT MET GOAL, EARLY DC) One Impairment Pt lacks an independent self care HEP. Short Term Goal (STG) Pt will be educated in proper posture sitting and standing. STG Duration 2 wks-07/20/23 (07/13/23: NOT MET GOAL, EARLY DC) Chcf Goal (LTG) Pt will be independent in a self care HEP for coccyx self mob/stretch to L side of coccyx and PF posterior> anterior strengthening, and posture exercises (decr kyphosis). Pt goal: Painfree with sitting and painfree walking thoughout the day (get rid of pain); LTG Duration 12 wks-09/28/23 (07/13/23 : progressed, NOT MET GOAL, EARLY DC) Assessment Summary Assessment 68 yo female with her cooccyx in R SB with tightness/pain present on L side, very tight and tender in the deep hip IR' s (Obturator internus) and pain deep in anus reported ( appears to be gluteals). Today's treatment, at her request, was focused on setting the pt onto a HEP and discharge from physical therapy to deal with other health issues. Her internal anal pain is less, rated 1/10 (was 2/10). Coccyx pain remains at 3/10 although pt feels she is better. Function has improved as noted with Oswestry Disability Index of 18/100 (initially 32/100). She was not able to meet all her goals and would benefit from physical therapy in the future (see discharge comments below). Physical Therapy Plan Discharge Physical Therapy Discharge Reasons Patient Request Discharge Comments Pt wanting to focus on her other health issues; therefore goals not met due to early discharge. When the pt has her other health issue dealt with, she would benefit from return to physical to complete her program to decrease her rectal pain and train the pt in managing her core pressure with daily activities and with voiding.
== END | disposition home or self-care (01) ==
LOC: PHYS 07-06 10:25
PROVIDERS: Family Provider Physician Assistant; PCP Physician Assistant; Referring Provider Physician Assistant; Visit Provider Physician Assistant
DX: M53.3 Sacrococcygeal disorders, not elsewhere classified (principal); M25.659 Stiffness of unspecified hip, not elsewhere classified; R10.2 Pelvic and perineal pain
CPT/HCPCS: 97110; 97162; 97535